=== PATIENT | female | born 1965 | race Caucasian/White ===

== ENCOUNTER 2019-11-05 06:10 | Day surgery (SDC) | payer BC, SELFPAY ==
[2019-10-30 13:41] LABS: BASOPHILS % (AUTO) 0.4 % (0.0-2.0); EOSINOPHILS # (AUTO) 0.1 K/uL (0.0-0.4); EOSINOPHILS % (AUTO) 2.7 % (0.0-4.0); HEMATOCRIT 39.2 % (36-48); LYMPHOCYTES # (AUTO) 1.6 K/uL (1.0-5.5); LYMPHOCYTES % (AUTO) 32.1 % (20.5-51.5); MEAN CORPUSCULAR HEMOGLOBIN 30 pg (27-31); MEAN CORPUSCULAR HGB CONC 33 % (32-36); MEAN CORPUSCULAR VOLUME 91 fL (79.0-98.0); MONOCYTES # (AUTO) 0.3 K/uL (0.0-1.0); MONOCYTES % (AUTO) 5.2 % (1.7-9.3); NEUTROPHILS % (AUTO) 59.6 % (40.0-70.0); PLATELET COUNT (AUTO) 163 K/uL (130-430); RED BLOOD CELL COUNT(AUTO) 4.29 MIL/uL (4.2-6.2); RED CELL DISTRIBUTION WIDTH 13.9 % (9.0-15.0)
[2019-10-30 13:59] LABS: ALBUMIN 3.6 g/dL (3.4-4.8); CALCIUM 8.6 mg/dL (8.4-11.0); CREATININE 0.64 mg/dL (0.55-1.30); POTASSIUM 3.7 mmol/L (3.5-5.1); TOTAL BILIRUBIN 0.5 mg/dL (0.0-1.0)
[~2019-11-05] VITALS: Ht 172.7 cm; Wt 79.8 kg
[~2019-11-05 06:10] MED LIST: CEFAZOLIN SOD 2 GM in D5W 50 ML IV ONE
[2019-11-05] MEDS ORDERED: POLYMYXIN 500,000/BACIT.10,000 UNITS in NS IRR 1 L IR ONE (08:21)
[2019-11-05] MEDS ORDERED: LR 1,000 ML IV SCH (10:41)
[2019-11-05] MEDS ORDERED: HYDROmorphone 1 MG INJ. 1 MG/ML AMPUL IVP PRN ×2 (10:45)
[2019-11-05] MEDS ORDERED: NALOXONE HCL 0.4 MG/ML AMP (NARCAN) IVP PRN (10:45)
[2019-11-05] MEDS ORDERED: ONDANSETRON HCL 4 MG/2 ML VIAL IVP PRN ×2 (10:45→11:45)
[2019-11-05] MEDS ORDERED: KETOROLAC TROMETHAMINE 30 MG VIAL IVP PRN (10:45)
[2019-11-05] MEDS ORDERED: METOCLOPRAMIDE HCL 10 MG/2 ML VIAL ONE (11:37)
[2019-11-05] MEDS ORDERED: BUPIVACAINE /PF 0.5% 30 ML VIAL ONE (11:37)
[2019-11-05] MEDS ORDERED: SEVOFLURANE 15 MIN GAS INH ONE (11:37)
[2019-11-05] MEDS ORDERED: NS IRRIG SOLN 1000 ML IR ONE (11:37)
[2019-11-05] MEDS ORDERED: NEOSTIGMINE METHYLSULFATE 1 MG/ML, 10 ML VIAL ONE (11:37)
[2019-11-05] MEDS ORDERED: PROPOFOL 200MG/ 20ML VIAL (DIPRIVAN) IV ONE (11:37)
[2019-11-05] MEDS ORDERED: LR 1,000 ML IV.SOLN IV ONE (11:37)
[2019-11-05] MEDS ORDERED: ONDANSETRON HCL 4 MG/2 ML VIAL ONE (11:37)
[2019-11-05] MEDS ORDERED: GLYCOPYRROLATE 0.2 MG/ML VIAL ONE (11:37)
[2019-11-05] MEDS ORDERED: CONJUGATED ESTROGENS VAGINAL CREAM 42.5 GM .APPL VG ONE (11:37)
[2019-11-05] MEDS ORDERED: KETOROLAC TROMETHAMINE 30 MG VIAL ONE ×2 (11:37→16:40)
[2019-11-05] MEDS ORDERED: MIDAZOLAM HCL 5 MG/ML VIAL (VERSED) IV ONE (11:37)
[2019-11-05] MEDS ORDERED: WATER FOR IRRIGATION,STERILE 1,000 ML IRRIG.SOLN IR ONE (11:37)
[2019-11-05] MEDS ORDERED: BUPIVACAINE /EPINEPHRINE/PF 0.5% 30 ML VIAL INJ ONE (11:37)
[2019-11-05] MEDS ORDERED: fentaNYL CITRATE/PF 100 MCG/2 ML AMP ONE (11:37)
[2019-11-05] MEDS ORDERED: DEXAMETHASONE SOD PHOSPHATE 4 MG/ML VIAL ONE (11:37)
[2019-11-05] MEDS ORDERED: KETOROLAC TROMETHAMINE 30 MG VIAL IVP ONE (11:45)
[2019-11-05] MEDS ORDERED: OXYCODONE/ACETAMINOPHEN 5-325 TABLET PO ONE (11:45)
[2019-11-05] MEDS ORDERED: MEPERIDINE HCL/PF 25 MG/ML DISP.SYRIN IVP ONE (11:45)
[2019-11-05] MEDS ORDERED: MEPERIDINE HCL/PF 25 MG/ML DISP.SYRIN ONE (12:03)
[2019-11-05 13:05] VITALS: BP_SYST 110
[2019-11-05] MEDS ORDERED: OXYCODONE/ACETAMINOPHEN 5-325 TABLET ONE (17:33)
== END 2019-11-05 19:00 | disposition home or self-care (01) ==
LOC: SDS 06:10 → SMU 06:10 → SDS 19:00
PROVIDERS: ATTEND Obstetrics & Gynecology
DX: N95.0 Postmenopausal bleeding (principal); N81.4 Uterovaginal prolapse, unspecified; N39.3 Stress incontinence (female) (male); Z98.890 Other specified postprocedural states; Z79.899 Other long term (current) drug therapy; Z11.59 Encounter for screening for other viral diseases
CPT/HCPCS: 36415 ×2; 51992; 57260; 57267; 58571; 80053; 85025; 86886 ×2; 86900 ×2; 86901 ×2; 88302; 88307; C1727; C1771; J0690; J1100; J1885; J2175; J2250; J2405; J2704; J2710; J2765; J3010; J3490 ×2; J7060; J7120; U0003; E0190